=== PATIENT | female | born 1960 | race Caucasian/White ===

== ENCOUNTER 2021-07-17 17:40 | Emergency (ER) | payer OTHER, SELFPAY ==
--- NOTE | 2021-07-17 18:55 | PC.NURSE ---
called x2 at this time, no response
== END 2021-07-17 23:07 | disposition left against medical advice (07) ==
PROVIDERS: Emergency Provider Emergency Medicine; PCP Nurse Practitioner Family
DX: M79.602 Pain in left arm (principal)